=== PATIENT | male | born 1990 | race Caucasian/White ===

== ENCOUNTER 2016-06-22 13:58 | Observation (INO) ==
--- NOTE | 2016-06-22 14:03 | Emergency Department Note ---
Disposition Clinical Impression: Hallucinosis, Pneumonia, Hypoxemia, Marijuana abuse, Severe sepsis, Smoker Disposition: Admitted As Inpatient Referrals: NO,PCP [Primary Care Provider] - Forms: ED Satisfaction Letter General Adult HPI - General Chief complaint: ED Overdose Stated complaint: OD Time Seen by Provider: 06/22/16 14:02 - History of Present Illness HPI Narrative: 25-year-old male comes in from home. He came by EMS. The patient reports he smoked some marijuana this morning and then "felt funny". His aunt called the squad and they had him brought in. Per history, the patient has been hallucinating, he is seeing shadows and things that are not there. 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 The patient denies physical complaints is morning, he smoked some marijuana which he states may been laced with another substance and then felt somewhat "funny" the patient was brought to ED for evaluation. He denies fall injury or seizure. There is no history of diabetes or hypoglycemia. The patient denies head pain neck pain back pain chest pain or abdominal pain. No vomiting or diarrhea. No skin rashes cough runny nose ear pain or sore throat. He has had no trouble walking talking hearing seeing or speaking. There is no history of suicidality , homicidality or intentional overdose. He denies taking any other substances. Hallucinosis and/or confusion are reported. The patient denies any major medical problems. - Related Data Previous Rx's Medication Instructions Recorded Doxycycline Hyclate 100 mg PO BID #20 tablet 03/19/16 Ibuprofen [Motrin] 800 mg PO Q8HR #30 tablet 03/19/16 Allergies Allergy/AdvReac Type Severity Reaction Status Date / Time naproxen Allergy See Verified 03/19/16 14:03 Comments Penicillins Allergy See Verified 03/19/16 14:03 Comments Sulfa (Sulfonamide Allergy See Verified 03/19/16 14:03 Antibiotics) Comments tramadol [From Ultram] Allergy See Verified 03/19/16 14:03 Comments All systems ED: reviewed and negative except as stated. Past Medical History - Past Medical History Medical history: Reports: no medical history Surgical history: Reports: non-contributory Psychiatric history: Reports: no psych history - Social History Smoking Status: Current every day smoker Smokeless Tobacco Status: No Alcohol use: Reports: occasionally Drug use: Reports: none Physical Exam - General Limitations: other (The patient is age-appropriate nontoxic in appearance he is still resting comfortably and is arousable, he generally follows commands well and answers basic questions appropriately but does not give appropriate details to questioning. He is somnolent but arousable. There does not appear to be in general trauma to the body.) General appearance: alert, appears intoxicated - Head Head exam: atraumatic, normocephalic, normal inspection - Eye Eye exam: Present: PERRL, EOMI, conjunctival injection. Absent: scleral icterus , miosis, mydriasis, periorbital swelling - ENT ENT exam: normal exam, normal oropharynx, mucous membranes moist, TM's normal bilaterally - Neck Neck exam: Present: normal inspection, full ROM, trachea midline. Absent: tenderness, meningismus - Chest Chest inspection: Present: normal inspection, symmetric chest wall rise. Absent : tenderness - Respiratory Respiratory exam: Present: normal lung sounds bilaterally. Absent: respiratory distress - Cardiovascular Cardiovascular exam: Present: regular rate, normal rhythm, normal heart sounds - Abdominal Exam Abdominal exam: Present: soft, Non-Tender. Absent: tenderness, distention, guarding, rebound, rigidity, normal bowel sounds - Extremities Exam Extremities exam: Present: normal inspection, full ROM, normal capillary refill. Absent: tenderness, pedal edema, joint swelling, calf tenderness - Expanded Lower Extremity Exam Lower leg exam: Absent: Homans' sign Neurovascular/Tendon exam: Absent: pulse deficit, motor deficit, sensory deficit , tendon deficit, extremity cold to touch, pallor - Back Exam Back exam: Present: normal inspection, full ROM. Absent: tenderness, CVA tenderness (R), CVA tenderness (L), vertebral tenderness - Neurological Exam Neurological exam: Present: alert, oriented X3, CN II-XII intact. Absent: motor sensory deficit - Psychiatric Psychiatric exam: Present: normal affect - Skin Skin exam: Present: warm, dry, intact, normal color. Absent: rash, cyanosis, diaphoresis, erythema, pallor, mottled Course Vital Signs Temperature 99.0 F 06/22/16 14:01 Pulse Rate 122 06/22/16 14:01 Respiratory Rate 16 06/22/16 14:01 Blood Pressure 129/74 06/22/16 14:01 O2 Sat by Pulse Oximetry 98 03/04/17 14:01 Temperature 99.0 F 06/22/16 14:01 Pulse Rate 104 06/22/16 17:49 Respiratory Rate 18 06/22/16 17:49 Blood Pressure 107/54 06/22/16 17:49 O2 Sat by Pulse Oximetry 92 L 06/22/16 17:49 Oxygen Delivery Oxygen Delivery Room Air Medical Decision Making - MDM Narrative Medical decision making narrative: The patient was being evaluated in emergency department, the patient's chest x- ray came back positive for pneumonia, he had an elevated white count and was initially tachycardic meeting sepsis criteria, secondary studies were ordered as well as IV antibiotics and Levaquin. We asked him to provide urine which he refused, we offered to catheterize, but the patient the became aggitated , then wildly combative and began swinging at staff. Security was notified who helped restrain the patient. The patient became increasingly combative and Haldol, Ativan, and Cogentin were ordered. Soft restraints were ordered. The patient appears to be highly confused, he has been hallucinating, his physical examination does not reveal any trauma, he appears to have pneumonitis on chest x-ray, he was initially tachycardic and has a white count. The patient meets sepsis criteria. IV access was ordered as well as IV Levaquin and blood cultures as well as a lactate and IV fluid. He patient's lactic acid came back at 3.2. The patient has been pink slipped, the patient is at risk for harming himself or others. He is confused and does not appear to be mentating appropriately. Based on his pneumonia, meeting severe sepsis criteria, confusion and hallucinosis associated with violent behavior, and drug abuse, I do not think the patient is safe to go home and he will require medical admission with secondary psychiatric evaluation. I have consulted the hospitalist on-call. I do not believe the patient is able to make his own decisions at this time based on his medical illness, drug intoxication, and apparent hallucinosis/mental status alteration, in association with combative behavior. - Lab Data Lab results reviewed: Yes I reviewed the patient's lab results. Result diagrams: 06/22/16 14:45 06/22/16 14:45 Lab Results 06/22/16 06/22/16 06/22/16 Range/Units 14:45 14:45 16:55 WBC 14.2 H (4.3-11.1) K/mcL RBC 4.48 (4.19-5.50) M/mcL Hgb 13.3 (12.9-16.9) g/dL Hct 38.9 (37.5-50.1) % MCV 86.8 (83.0-100.0) fL MCH 29.7 (28.0-33.3) pg MCHC 34.2 (31.6-35.5) g/dL RDW 12.6 (11.5-14.5) % Plt Count 263 (140-400) K/mcL MPV 10.8 (9.4-12.4) fL Immature Gran % 0.5 (0-4) % Seg Neutrophils % 79.8 % Lymphocytes % 12.6 % Monocytes % 6.3 % Eosinophils % 0.5 % Basophils % 0.3 % Neutrophils # 11.3 H (1.6-8.9) K/mcL Lymphocytes # 1.8 (0.6-4.6) K/mcL Monocytes # 0.9 (0.0-1.3) K/mcL Eosinophils # 0.1 (0.0-0.6) K/mcL Basophils # 0.0 (0.0-0.2) K/mcL Sodium 137 (136-145) mEq/L Potassium 3.9 (3.5-4.5) mEq/L Chloride 105 (98-109) mEq/L Carbon Dioxide 24 (19-29) mEq/L BUN 10 (8-26) mg/dL Creatinine 1.03 (0.72-1.25) mg/dL Est GFR ( Amer) > 60 (> 60) Est GFR (Non-Af Amer) > 60 (> 60) BUN/Creatinine Ratio 10 (6-26) Glucose 104 H (70-99) mg/dL Calculated Osmolality 283 (280-300) Lactic Acid (0.5-2.2) mmol/L Calcium 9.2 (8.6-10.8) mg/dL Total Bilirubin 0.3 (0.2-1.2) mg/dL Direct Bilirubin 0.1 (0.0-0.5) mg/dL Indirect Bilirubin 0.2 (0.0-1.2) mg/dL AST 18 (5-34) Units/L ALT 17 (0-55) Units/L Alkaline Phosphatase 64 (38-126) Units/L Serum Total Protein 7.3 (6.0-8.3) g/dL Albumin 3.8 (3.5-5.0) g/dL Globulin 3.5 (2.4-3.5) g/dL Albumin/Globulin Ratio 1.1 (1.1-2.2) TSH 0.684 (0.350-4.840) mcIU/mL Urine Color Yellow (Yellow) Urine Clarity Clear (Clear) Urine pH 6.0 (5.0-8.0) pH Units Ur Specific Sutton 1.029 H (1.010-1.025) Urine Protein 30 H (Neg-Trace) mg/dL Urine Glucose (UA) 100 H (Normal) mg/dL Urine Ketones Negative (Negative) mg/dL Urine Blood Negative (Negative) Urine Nitrite Negative (Negative) Urine Bilirubin Negative (Negative) Urine Urobilinogen Normal (Normal) mg/dL Ur Leukocyte Esterase Negative (Negative) Urine Microscopic RBC 3-5 H (0-3) per hpf Urine Microscopic WBC 3-5 H (0-3) per hpf Ur Squamous Epith Cells Many H (None-Few) per lpf Urine Bacteria None Seen (None-Few) per hpf Hyaline Casts Few (None-Few) per lpf Salicylates < 5.0 L (15-30) mg/dL Urine Opiates Screen (Jyudbc=063) ng/mL Acetaminophen < 1.0 L (10-30) mcg/mL Ur Barbiturates Screen (Nsdksm=279) ng/mL Ur Phencyclidine Scrn (Cutoff=25) ng/mL Ur Amphetamines Screen (Vduxmj=4232) ng/mL U Benzodiazepines Scrn (Idlapo=299) ng/mL Urine Cocaine Screen (Cutoff= 300) ng/mL U Marijuana (THC) Screen (Cutoff = 50) ng/mL Ethyl Alcohol < 10 (0-10) mg/dL 06/22/16 06/22/16 Range/Units 16:55 17:24 WBC (4.3-11.1) K/mcL RBC (4.19-5.50) M/mcL Hgb (12.9-16.9) g/dL Hct (37.5-50.1) % MCV (83.0-100.0) fL MCH (28.0-33.3) pg MCHC (31.6-35.5) g/dL RDW (11.5-14.5) % Plt Count (140-400) K/mcL MPV (9.4-12.4) fL Immature Gran % (0-4) % Seg Neutrophils % % Lymphocytes % % Monocytes % % Eosinophils % % Basophils % % Neutrophils # (1.6-8.9) K/mcL Lymphocytes # (0.6-4.6) K/mcL Monocytes # (0.0-1.3) K/mcL Eosinophils # (0.0-0.6) K/mcL Basophils # (0.0-0.2) K/mcL Sodium (136-145) mEq/L Potassium (3.5-4.5) mEq/L Chloride (98-109) mEq/L Carbon Dioxide (19-29) mEq/L BUN (8-26) mg/dL Creatinine (0.72-1.25) mg/dL Est GFR ( Amer) (> 60) Est GFR (Non-Af Amer) (> 60) BUN/Creatinine Ratio (6-26) Glucose (70-99) mg/dL Calculated Osmolality (280-300) Lactic Acid 3.2 H (0.5-2.2) mmol/L Calcium (8.6-10.8) mg/dL Total Bilirubin (0.2-1.2) mg/dL Direct Bilirubin (0.0-0.5) mg/dL Indirect Bilirubin (0.0-1.2) mg/dL AST (5-34) Units/L ALT (0-55) Units/L Alkaline Phosphatase (38-126) Units/L Serum Total Protein (6.0-8.3) g/dL Albumin (3.5-5.0) g/dL Globulin (2.4-3.5) g/dL Albumin/Globulin Ratio (1.1-2.2) TSH (0.350-4.840) mcIU/mL Urine Color (Yellow) Urine Clarity (Clear) Urine pH (5.0-8.0) pH Units Ur Specific Sutton (1.010-1.025) Urine Protein (Neg-Trace) mg/dL Urine Glucose (UA) (Normal) mg/dL Urine Ketones (Negative) mg/dL Urine Blood (Negative) Urine Nitrite (Negative) Urine Bilirubin (Negative) Urine Urobilinogen (Normal) mg/dL Ur Leukocyte Esterase (Negative) Urine Microscopic RBC (0-3) per hpf Urine Microscopic WBC (0-3) per hpf Ur Squamous Epith Cells (None-Few) per lpf Urine Bacteria (None-Few) per hpf Hyaline Casts (None-Few) per lpf Salicylates (15-30) mg/dL Urine Opiates Screen Negative (Fqqnnr=380) ng/mL Acetaminophen (10-30) mcg/mL Ur Barbiturates Screen Negative (Uvauce=465) ng/mL Ur Phencyclidine Scrn Negative (Cutoff=25) ng/mL Ur Amphetamines Screen Negative (Sysmdz=9589) ng/mL U Benzodiazepines Scrn Negative (Cbztxj=749) ng/mL Urine Cocaine Screen Negative (Cutoff= 300) ng/mL U Marijuana (THC) Screen Positive H (Cutoff = 50) ng/mL Ethyl Alcohol (0-10) mg/dL - Radiology Data Radiology results reviewed: Yes I reviewed the patient's radiology results.
[2016-06-22 14:52] LABS: Basophils % 0.3 %; Eosinophils # 0.1 K/mcL (0.0-0.6); Eosinophils % 0.5 %; Hematocrit 38.9 % (37.5-50.1); Hemoglobin 13.3 g/dL (12.9-16.9); Immature Granulocytes % 0.5 % (0-4); Lymphocytes # 1.8 K/mcL (0.6-4.6); Lymphocytes % 12.6 %; Mean Corpuscular HGB Conc 34.2 g/dL (31.6-35.5); Mean Corpuscular Hemoglobin 29.7 pg (28.0-33.3); Mean Corpuscular Volume 86.8 fL (83.0-100.0); Mean Platelet Volume 10.8 fL (9.4-12.4); Monocytes # 0.9 K/mcL (0.0-1.3); Monocytes % 6.3 %; Neutrophils # 11.3 K/mcL (1.6-8.9); Platelet Count 263 K/mcL (140-400); Red Blood Count 4.48 M/mcL (4.19-5.50); Red Cell Distribution Width 12.6 % (11.5-14.5); Segmented Neutrophils % 79.8 %
[2016-06-22 15:06] LABS: Acetaminophen < 1.0 mcg/mL (10-30); Alanine Aminotransferase 17 Units/L (0-55); Albumin 3.8 g/dL (3.5-5.0); Albumin/Globulin Ratio 1.1 (1.1-2.2); Alkaline Phosphatase 64 Units/L (38-126); Aspartate Amino Transferase 18 Units/L (5-34); BUN/Creatinine Ratio 10 (6-26); Bilirubin,Direct 0.1 mg/dL (0.0-0.5); Bilirubin,Indirect 0.2 mg/dL (0.0-1.2); Bilirubin,Total 0.3 mg/dL (0.2-1.2); Blood Urea Nitrogen 10 mg/dL (8-26); Calcium 9.2 mg/dL (8.6-10.8); Carbon Dioxide 24 mEq/L (19-29); Chloride 105 mEq/L (98-109); Ethanol < 10 mg/dL (0-10); Globulin 3.5 g/dL (2.4-3.5); Glucose 104 mg/dL (70-99); Osmolality,Calculated 283 (280-300); Potassium 3.9 mEq/L (3.5-4.5); Salicylate < 5.0 mg/dL (15-30); Sodium 137 mEq/L (136-145); Total Protein 7.3 g/dL (6.0-8.3); eGFR For African Americans > 60 (> 60); eGFR For Non-African Americans > 60 (> 60)
[2016-06-22 15:25] LABS: Thyroid Stimulating Hormone 0.684 mcIU/mL (0.350-4.840)
[2016-06-22] MEDS ORDERED: 0.9 % Sodium Chloride 1,000 ML IVC ONE (16:06)
[2016-06-22] MEDS ORDERED: Levofloxacin 750 MG/150 ML 750 MG/150 ML BAG IVPB ONE (16:06)
[2016-06-22] MEDS ORDERED: *HR* LORazepam 1 MG TABLET PO ONE (16:49)
[2016-06-22] MEDS ORDERED: Haloperidol Lactate 5 MG/ML VIAL IM ONE (16:49)
[2016-06-22] MEDS ORDERED: *HR* LORazepam 2 MG/ML VIAL ONE (16:53)
[2016-06-22 17:07] LABS: Bilirubin,Urine Negative (Negative); Blood,Urine Negative (Negative); Clarity,Urine Clear (Clear); Color,Urine Yellow (Yellow); Glucose,Urine (UA) 100 mg/dL (Normal); Ketones,Urine Negative (Negative); Leukocyte Esterase,Urine Negative (Negative); Nitrite,Urine Negative (Negative); Protein,Urine 30 mg/dL (Neg-Trace); Specific Gravity,Urine 1.029 (1.010-1.025); Urobilinogen,Urine Normal (Normal)
[2016-06-22 17:10] LABS: Bacteria,Urine None Seen per hpf (None-Few); Hyaline Casts,Urine Few per lpf (None-Few); Squamous Epithelial Cell,Urine Many per lpf (None-Few)
[2016-06-22 17:11] LABS: Amphetamine Screen,Urine Negative ng/mL (Cutoff=1000); Barbiturate Screen,Urine Negative ng/mL (Cutoff=200); Benzodiazepines Screen,Urine Negative ng/mL (Cutoff=200); Cannabinoid Screen,Urine Positive ng/mL (Cutoff = 50); Cocaine Screen,Urine Negative ng/mL (Cutoff= 300); Opiate Screen,Urine Negative ng/mL (Cutoff=300); Phencyclidine Screen,Urine Negative ng/mL (Cutoff=25)
[2016-06-22] MEDS ORDERED: 0.9 % Sodium Chloride 1,000 ML IVC SCH (18:00)
[2016-06-22] MEDS ORDERED: Clindamycin 600 MG/50 ML 600 MG/50 ML IV.SOLN IVPB ONE (18:14)
[2016-06-22] MEDS ORDERED: Naloxone 0.4 MG/ML INJ IVP PRN (19:52)
[2016-06-22] MEDS ORDERED: Ondansetron 4 MG/2 ML VIAL IVP PRN (19:52)
--- NOTE | 2016-06-22 20:11 | Internal Med History&Physical ---
Date of Encounter: 06/22/16 Time of Encounter: 19:25 Internal Medicine - H&P: HPI Chief complaint: "I feel tired" Admitted From: Emergency Dept Plans for Post Hospital Care: Home History of present illness: Mr. Solomon is a 25 year old male with no significant medical history was brought in by EMS. He reportedly was hallucinating (visual) after smoking Marijuana today. His aunt called the EMS. The patient had allegedly worked in the early hours of the morning, then engaged in smoking marijuana subsequently. He cannot confirm his supply of marijuana , and thinks it may have been spiced. He smoked the supply. No other drug ingestions. He denies any associated sign or symptoms even with detailed ROS, agreeing only to lethargy. In the ED, he was hypoxic, and had heart rate >130S. HE RECEIEVD OXYGEN SUPPLENTATION AND IVF resuscitation. CXR demonstrates right middle lobe infiltrate. He received IV Levaquin and Clindamycin. He denied cough or SOB, no chest pain, no fever, no hemoptysis, no fall or seizures. No N/V/ no abdominal pain. He denied hallucinations, suicidality, homicidality or intentional overdose. He waas reported agitated in the ED, but he recalls he was agitated because of the request to CATHETERIZE HIM, HE DECLINED, his resistance to the procedure was interpreted as agitation. He was calm, though sleepy when I saw him. He answered by question coherently and logically He is FULL CODE as per discussion. ROS: A 10 -point ROS was performed, positives and relevant negatives are detailed, system-symptom not mentioned assumed negative unless otherwise state. See HPI Family history: He denies any relevant family history. Vital Signs Temperature 99.0 F 06/22/16 14:01 Pulse Rate 122 06/22/16 14:01 Respiratory Rate 16 06/22/16 14:01 Blood Pressure 129/74 06/22/16 14:01 O2 Sat by Pulse Oximetry 98 06/22/16 14:01 Temperature 99.0 F 06/22/16 14:01 Pulse Rate 104 06/22/16 17:49 Respiratory Rate 18 06/22/16 17:49 Blood Pressure 107/54 06/22/16 17:49 O2 Sat by Pulse Oximetry 92 L 06/22/16 17:49 Not in distress, not ill or toxic looking. lethargic, drowsy Not pale, anicteric, afebrile, acyanotic. Dry mucosa. HEENT: No JVD, no cervical lymphadenopathy, Chest : CTAB, 95% on pulse oximetry on room air Heart: RRR, HS1/2, no m/r/g. nsr in telemetry. Abdomen: soft, tender in the LLQ, no guarding, no rebound, no masses, BS+ : No flank tenderness, no CVA tenderness, no suprapubic tenderness. [employer]: Drowsy, arousable, but soon drifts back to sleep. He is able to provide coherent and logical answers to question posed. no focal neurological signs, generalized weakness Skin: no active skin lesion. no rash Extremities: No pedal edema, normal pedal pulses, no calf tenderness. Lab Results 06/22/16 06/22/16 06/22/16 Range/Units 14:45 14:45 16:55 WBC 14.2 H (4.3-11.1) K/mcL RBC 4.48 (4.19-5.50) M/mcL Hgb 13.3 (12.9-16.9) g/dL Hct 38.9 (37.5-50.1) % MCV 86.8 (83.0-100.0) fL MCH 29.7 (28.0-33.3) pg MCHC 34.2 (31.6-35.5) g/dL RDW 12.6 (11.5-14.5) % Plt Count 263 (140-400) K/mcL MPV 10.8 (9.4-12.4) fL Immature Gran % 0.5 (0-4) % Seg Neutrophils % 79.8 % Lymphocytes % 12.6 % Monocytes % 6.3 % Eosinophils % 0.5 % Basophils % 0.3 % Neutrophils # 11.3 H (1.6-8.9) K/mcL Lymphocytes # 1.8 (0.6-4.6) K/mcL Monocytes # 0.9 (0.0-1.3) K/mcL Eosinophils # 0.1 (0.0-0.6) K/mcL Basophils # 0.0 (0.0-0.2) K/mcL Sodium 137 (136-145) mEq/L Potassium 3.9 (3.5-4.5) mEq/L Chloride 105 (98-109) mEq/L Carbon Dioxide 24 (19-29) mEq/L BUN 10 (8-26) mg/dL Creatinine 1.03 (0.72-1.25) mg/dL Est GFR ( Amer) > 60 (> 60) Est GFR (Non-Af Amer) > 60 (> 60) BUN/Creatinine Ratio 10 (6-26) Glucose 104 H (70-99) mg/dL Calculated Osmolality 283 (280-300) Lactic Acid (0.5-2.2) mmol/L Calcium 9.2 (8.6-10.8) mg/dL Total Bilirubin 0.3 (0.2-1.2) mg/dL Direct Bilirubin 0.1 (0.0-0.5) mg/dL Indirect Bilirubin 0.2 (0.0-1.2) mg/dL AST 18 (5-34) Units/L ALT 17 (0-55) Units/L Alkaline Phosphatase 64 (38-126) Units/L Serum Total Protein 7.3 (6.0-8.3) g/dL Albumin 3.8 (3.5-5.0) g/dL Globulin 3.5 (2.4-3.5) g/dL Albumin/Globulin Ratio 1.1 (1.1-2.2) TSH 0.684 (0.350-4.840) mcIU/mL Urine Color Yellow (Yellow) Urine Clarity Clear (Clear) Urine pH 6.0 (5.0-8.0) pH Units Ur Specific Mcgee 1.029 H (1.010-1.025) Urine Protein 30 H (Neg-Trace) mg/dL Urine Glucose (UA) 100 H (Normal) mg/dL Urine Ketones Negative (Negative) mg/dL Urine Blood Negative (Negative) Urine Nitrite Negative (Negative) Urine Bilirubin Negative (Negative) Urine Urobilinogen Normal (Normal) mg/dL Ur Leukocyte Esterase Negative (Negative) Urine Microscopic RBC 3-5 H (0-3) per hpf Urine Microscopic WBC 3-5 H (0-3) per hpf Ur Squamous Epith Cells Many H (None-Few) per lpf Urine Bacteria None Seen (None-Few) per hpf Hyaline Casts Few (None-Few) per lpf Salicylates < 5.0 L (15-30) mg/dL Urine Opiates Screen (Htsyzn=530) ng/mL Acetaminophen < 1.0 L (10-30) mcg/mL Ur Barbiturates Screen (Ycbrre=646) ng/mL Ur Phencyclidine Scrn (Cutoff=25) ng/mL Ur Amphetamines Screen (Ynfpse=5855) ng/mL U Benzodiazepines Scrn (Oupalr=717) ng/mL Urine Cocaine Screen (Cutoff= 300) ng/mL U Marijuana (THC) Screen (Cutoff = 50) ng/mL Ethyl Alcohol < 10 (0-10) mg/dL 06/22/16 06/22/16 Range/Units 16:55 17:24 WBC (4.3-11.1) K/mcL RBC (4.19-5.50) M/mcL Hgb (12.9-16.9) g/dL Hct (37.5-50.1) % MCV (83.0-100.0) fL MCH (28.0-33.3) pg MCHC (31.6-35.5) g/dL RDW (11.5-14.5) % Plt Count (140-400) K/mcL MPV (9.4-12.4) fL Immature Gran % (0-4) % Seg Neutrophils % % Lymphocytes % % Monocytes % % Eosinophils % % Basophils % % Neutrophils # (1.6-8.9) K/mcL Lymphocytes # (0.6-4.6) K/mcL Monocytes # (0.0-1.3) K/mcL Eosinophils # (0.0-0.6) K/mcL Basophils # (0.0-0.2) K/mcL Sodium (136-145) mEq/L Potassium (3.5-4.5) mEq/L Chloride (98-109) mEq/L Carbon Dioxide (19-29) mEq/L BUN (8-26) mg/dL Creatinine (0.72-1.25) mg/dL Est GFR ( Amer) (> 60) Est GFR (Non-Af Amer) (> 60) BUN/Creatinine Ratio (6-26) Glucose (70-99) mg/dL Calculated Osmolality (280-300) Lactic Acid 3.2 H (0.5-2.2) mmol/L Calcium (8.6-10.8) mg/dL Total Bilirubin (0.2-1.2) mg/dL Direct Bilirubin (0.0-0.5) mg/dL Indirect Bilirubin (0.0-1.2) mg/dL AST (5-34) Units/L ALT (0-55) Units/L Alkaline Phosphatase (38-126) Units/L Serum Total Protein (6.0-8.3) g/dL Albumin (3.5-5.0) g/dL Globulin (2.4-3.5) g/dL Albumin/Globulin Ratio (1.1-2.2) TSH (0.350-4.840) mcIU/mL Urine Color (Yellow) Urine Clarity (Clear) Urine pH (5.0-8.0) pH Units Ur Specific Mcgee (1.010-1.025) Urine Protein (Neg-Trace) mg/dL Urine Glucose (UA) (Normal) mg/dL Urine Ketones (Negative) mg/dL Urine Blood (Negative) Urine Nitrite (Negative) Urine Bilirubin (Negative) Urine Urobilinogen (Normal) mg/dL Ur Leukocyte Esterase (Negative) Urine Microscopic RBC (0-3) per hpf Urine Microscopic WBC (0-3) per hpf Ur Squamous Epith Cells (None-Few) per lpf Urine Bacteria (None-Few) per hpf Hyaline Casts (None-Few) per lpf Salicylates (15-30) mg/dL Urine Opiates Screen Negative (Bhoolo=511) ng/mL Acetaminophen (10-30) mcg/mL Ur Barbiturates Screen Negative (Bvjtew=024) ng/mL Ur Phencyclidine Scrn Negative (Cutoff=25) ng/mL Ur Amphetamines Screen Negative (Lpqviw=2226) ng/mL U Benzodiazepines Scrn Negative (Ljymse=095) ng/mL Urine Cocaine Screen Negative (Cutoff= 300) ng/mL U Marijuana (THC) Screen Positive H (Cutoff = 50) ng/mL Ethyl Alcohol (0-10) mg/dL CXR: right middle lobe infiltrate. IMP Marijuana (perhaps spiced) related encephalopathy, now resolved. Acute hypoxic respiratory failure related to #1 and aspiration Aspiration pneumonia Lactic acidosis related to hypoxia, not neccessarily sepsis. Illicit drug use. PLAN Admit Oxygen supplementation IV Levofloxacin and Clindamycin aSPIRATION PRECAUTION IVF NS @ 125 No indication for DVT/GI prophyaxis Symptom control. The patient is high risk due to acute hypoxic respiratory failure in the setting of aspiration related to drug induced encephalopathy. He is at high risk for decompensation. Past Med Surg Social Fam HX - Past Medical History Medical history: no medical history Psychiatric history: no psych history - Past Surgical History Surgical History: non-contributory - Social History Smoking Status: Current every day smoker Smokeless Tobacco Status: No Alcohol use: occasionally Drug use: none Internal Medicine - H&P: Meds Doxycycline Hyclate 100 mg PO BID #20 tablet 03/19/16 [Rx] Ibuprofen [Motrin] 800 mg PO Q8HR #30 tablet 03/19/16 [Rx] Allergies naproxen Allergy (Verified 03/19/16 14:03) See Comments Penicillins Allergy (Verified 03/19/16 14:03) See Comments Sulfa (Sulfonamide Antibiotics) Allergy (Verified 03/19/16 14:03) See Comments tramadol [From Ultram] Allergy (Verified 03/19/16 14:03) See Comments All Systems PM: A 10-system review of systems was performed and is negative for pertinent findings except as documented above in the HPI. - Constitutional Vitals: Temp Pulse Resp BP Pulse Ox 99.2 F 90 16 118/51 94 L 06/22/16 19:00 06/22/16 19:00 06/22/16 19:00 06/22/16 19:00 06/22/16 19:00 Internal Med - H&P Results - Labs CBC & Chem 7: 06/22/16 14:45 06/22/16 14:45 - VTE Reasons for not Prescribing Prophylaxis: Treatment not Indicated - Low risk for VTE
[2016-06-22] MEDS: 0.9 % Sodium Chloride 1,000 ML IVC SCH (20:34)
[2016-06-22] MEDS: Clindamycin 600 MG/50 ML 600 MG/50 ML IV.SOLN IVPB SCH (23:44)
[2016-06-23 05:50] LABS: Basophils # 0.1 K/mcL (0.0-0.2); Basophils % 0.5 %; Eosinophils # 0.2 K/mcL (0.0-0.6); Eosinophils % 2.2 %; Hematocrit 36.6 % (37.5-50.1); Hemoglobin 12.7 g/dL (12.9-16.9); Immature Granulocytes % 0.3 % (0-4); Immature Platelets 6.4 % (1.1-6.1); Lymphocytes # 4.5 K/mcL (0.6-4.6); Lymphocytes % 42.9 %; Mean Corpuscular HGB Conc 34.7 g/dL (31.6-35.5); Mean Corpuscular Hemoglobin 30.5 pg (28.0-33.3); Mean Platelet Volume 10.9 fL (9.4-12.4); Monocytes # 0.8 K/mcL (0.0-1.3); Monocytes % 7.1 %; Platelet Count 240 K/mcL (140-400); Red Blood Count 4.16 M/mcL (4.19-5.50)
[2016-06-23 06:01] LABS: BUN/Creatinine Ratio 10 (6-26); Blood Urea Nitrogen 9 mg/dL (8-26); Calcium 8.6 mg/dL (8.6-10.8); Carbon Dioxide 22 mEq/L (19-29); Chloride 108 mEq/L (98-109); Glucose 84 mg/dL (70-99); Osmolality,Calculated 282 (280-300); Potassium 3.7 mEq/L (3.5-4.5); Sodium 137 mEq/L (136-145); eGFR For African Americans > 60 (> 60); eGFR For Non-African Americans > 60 (> 60)
[2016-06-23] MEDS: 0.9 % Sodium Chloride 1,000 ML IVC SCH (08:00)
[2016-06-23] MEDS ORDERED: Levofloxacin 750 MG/150 ML 750 MG/150 ML BAG IVPB SCH (09:00)
[2016-06-23 09:03] VITALS: BP 106/56
[2016-06-23] MEDS: Clindamycin 600 MG/50 ML 600 MG/50 ML IV.SOLN IVPB SCH (09:15)
--- NOTE | 2016-06-23 10:38 | Discharge Summary ---
Date of Encounter: 06/23/16 Time of Encounter: 10:00 - Discharge Diagnosis (1) Hallucinosis Priority: Primary Status: Resolved (2) Hypoxemia Priority: Primary Status: Resolved (3) Marijuana abuse Priority: Secondary Status: Chronic (4) Pneumonia Priority: Primary Status: Acute Qualifiers: Pneumonia type: aspiration pneumonia Aspiration pneumonia type: unspecified Laterality: right Lung location: middle lobe of lung Qualified Code(s): J69.0 - Pneumonitis due to inhalation of food and vomit (5) Smoker Priority: Secondary Status: Chronic - Discharge Medications Prescriptions: Clindamycin HCl 600 mg PO Q12H #10 capsule Home Medications: Clindamycin HCl 600 mg PO Q12H #10 capsule 06/23/16 [Rx] Allergies/Adverse Reactions: Allergies naproxen Allergy (Unknown, Verified 06/23/16 10:16) See Comments PATIENT UNSURE OF REACTION- Penicillins Allergy (Unknown, Verified 06/23/16 10:16) See Comments PATIENT UNSURE OF REACTION- Sulfa (Sulfonamide Antibiotics) Allergy (Unknown, Verified 06/23/16 10:16) See Comments PATIENT UNSURE OF REACTION- tramadol [From Ultram] Allergy (Unknown, Verified 06/23/16 10:16) See Comments PATIENT UNSURE OF REACTION- Date of admission: 06/22/16 19:52 Primary care physician: PCP ДМИТРИЙ Discharging clinician: Estephanie Robert Anticipated date of discharge: 06/23/16 - Patient Status Disposition: Home, Self-Care Condition: Good Functional capacity at discharge: independent ambulation Overall status at discharge: patient is back to baseline - Discharge Instructions Follow Up With: ДМИТРИЙ,PCP [Primary Care Provider] - Additional Instructions: Please follow up with your primary care physician within one week after your discharge from the hospital. Please take the oral antibiotic as prescribed. Clindamycin can cause diarrhea, if diarrhea becomes and severe, please discontinue the medication and seek medical help. Please abstain from using marijuana and tobacco. - Diet and Activity Activity: resume usual activities as tolerated Diet: advance to your usual diet Hospital course: Mr. Solomon is a 25 year old male with no significant PMH who was admitted for marijuana related encephalopathy, acute hypoxic respiratory failure secondary to marijuana abuse and aspiration pneumonia. Patient responded well to oxygen supplementation, IV fluids, and IV abx. He reports of being an every cigarette and marijuana smoker. States he just got a bad batch of marijuana yesterday that contributed to his presenting symptoms. He is currently saturating well on room air, denies any cough, pain, fever, or chills. He states he feels well and would like to go home. At this time, patient is hemodynamically stable and will be discharged to home with follow up with PCP within one week after his discharge from the hospital. Extensive cigarette and marijuana cessation counseling provided. Patient is not ready to quit at this time. He demonstrates understanding of his discharge diagnosis, care, and plan. Time spent discussing smoking cessation with patient: 3 to 10 minutes - Time Spent with Patient Total time spent providing and/or coordinating discharge services: Less than 30 minutes - Constitutional Vitals: Temp Pulse Resp BP Pulse Ox 97.5 F L 62 16 106/56 97 06/23/16 08:00 06/23/16 08:00 06/23/16 08:00 06/23/16 08:00 06/23/16 08:00 General appearance: Present: A&O X 3, no acute distress, obese, answers questions appropriately - Head Head exam: Present: atraumatic, normocephalic - Eye Eye exam: Present: PERRL, conjuntiva pink, sclera anicteric - Respiratory Respiratory exam: Present: CTAB. Absent: accessory muscle use, rales, rhonchi, wheezes - Cardiovascular Cardiovascular exam: Present: RRR, +S1, +S2. Absent: diastolic murmur, gallop, rubs, systolic murmur - GI/Abdominal GI/Abdominal exam: Present: normal bowel sounds, soft, no peritoneal signs. Absent: distended, tenderness - Extremities Exam Extremities exam: Present: warm, radial pulses palpable and symetrical. Absent : calf tenderness, cyanotic, pedal edema - Neurological Exam Neurological exam: Present: alert, oriented X3, no focal deficits. Absent: pronater drift, facial droop, speech deficit - Psychiatric Psychiatric exam: Present: normal affect, normal mood - VTE Reasons for not Prescribing Prophylaxis: Treatment not Indicated - Low risk for VTE
--- NOTE | 2016-06-24 07:16 | Electrocardiograph Report ---
[place] [id number] Test Date: 2016-06-22 Pat Name: Baldomero Solomon Department: 104 Room: 2N13 Gender: M Quality Control Expert: : [id number] Requested By: Jose Armando Bedolla Order Number: [id number] Reading MD: Neil Easley MD Measurements Intervals [place] Rate: 98 P: 31 MN: 152 QRS: 62 QRSD: 80 T: 29 QT: 321 QTc: 376 Interpretive Statements SINUS RHYTHM Electronically Signed On 06-24-2016 7:14:26 EST by Neil Easley MD
== END 2016-06-23 11:57 | disposition home or self-care (01) | DRG 137 ==
LOC: 2NNU 13:58 → EMEROO 13:58 → 2NNU 18:41
PROVIDERS: ADMIT Internal Medicine; ATTEND Internal Medicine